=== PATIENT | male | born 1950 | race Asian ===

== ENCOUNTER 2024-10-14 01:23 | Observation (INO) | payer MEDICARE, OTHER ==
[~2024-10-14] VITALS: Ht 167.6 cm; Wt 51.8 kg
[~2024-10-14 01:23] MED LIST: ASPIRIN EC81 MG PO; BETHANECHOL CHL50 MG PO; CARTIA XT120 MG PO; COUMADIN10 MG PO; COUMADIN2.5 MG PO; COUMADIN5 MG PO; DIGOXIN125 MCG PO; ESGIC 50-325-41 EACH PO; FLEET ENEMA133 ML PR; KEPPRA500 MG PO; LIPITOR20 MG PO; LIPITOR40 MG PO; METOPROLOL TART25 MG PO; METOPROLOL TART50 MG PO; MILK OF MA400 MG/5 M PO; NORCO 5-325 TA1 EACH PO; PERCOCET 5-3251 EACH PO; POLYETHYLENE GL17 GM PO; SEROQUEL25 MG PO; WARFARIN SODIUM5 MG PO; ZENPEP DR 10,01 EACH PO
[2024-10-14 01:49] LABS: BASOPHILS 0.1 % (0-2); HEMATOCRIT 33.4 % (35.0-50.0); HEMOGLOBIN 10.9 g/dL (12.0-18.0); LYMPHOCYTES 6.2 % (24-44); MCH 32.5 (27-36); MCHC 32.7 g/dl (30-36); MCV 99.5 fl (81-99); MONOCYTES 3.4 % (0-12); NEUTROPHILS 90.3 % (39-80); PLATELET COUNT 239 K/uL (140-440); RBC 3.36 M/ul (4.3-5.7); RDW 15.2 (10.5-15.0)
[2024-10-14 01:55] LABS: INR 2.85 (0.80-1.30); PARTIAL THROMBOPLASTIN TIME 49.8 Sec (22.9-41.3); PROTIME 28.9 Sec (11.2-14.2)
[2024-10-14 02:00] LABS: ALBUMIN 3.2 g/dL (3.4-5.0); ALBUMIN/GLOBULIN RATIO 0.71 (1.1-2.4); ALCOHOL, MEDICAL <3 ng/dL (<3); ALKALINE PHOSPHATASE 74 U/L (46-116); ALT (SGPT) 12 U/L (14-59); ANION GAP 18.4 (7-21); AST (SGOT) 27 U/L (15-37); BILIRUBIN, TOTAL 2.4 ng/dL (0.2-1.0); BUN/CREATININE RATIO 18.57 (6.0-28.6); CALCIUM 8.7 mg/dL (8.5-10.1); CARBON DIOXIDE 21 mmol/L (21-32); CHLORIDE 106 mmol/L (98-107); GLOMERULAR FILTRATION RATE,EST 52 mL/min (>60); POTASSIUM 4.4 mmol/L (3.5-5.1); PROTEIN, TOTAL 7.7 g/dL (6.4-8.2); UREA NITROGEN 26 mg/dL (7-18)
[2024-10-14] MEDS ORDERED: PHYTONADIONE 10 MG in SODIUM CHLORIDE 0.9% 50 ML IV ONE (02:15)
[2024-10-14] MEDS ORDERED: diphenhydrAMINE HCL 50 MG/ML VIAL IV PRN (02:15)
[2024-10-14] MEDS ORDERED: HUMAN PROTHROMBIN COMPLX(PCC) 500 UNIT/20 ML VIAL IV ONE (02:15)
[2024-10-14] MEDS ORDERED: SODIUM CHLORIDE 0.9% 50 ML IV PRN (02:15)
[2024-10-14] MEDS ORDERED: TRANEXAMIC ACID IN NACL,ISO-OS 1,000 MG/100 ML PIGGYBACK IV SCH (03:00)
[2024-10-14] MEDS ORDERED: MORPHINE SULFATE 4 MG/ML VIAL IV PRN (08:15)
[2024-10-14] MEDS ORDERED: KETOROLAC TROMETHAMINE 15 MG/ML VIAL IV PRN (08:15)
[2024-10-14] MEDS ORDERED: ATROPINE SULFATE 1% OPTH DROPS SL PRN (08:15)
[2024-10-14] MEDS ORDERED: ACETAMINOPHEN 650 MG SUPP PR PRN (08:15)
[2024-10-14] MEDS ORDERED: LORazepam 2 MG/ML VIAL IV PRN (08:15)
[2024-10-14] MEDS ORDERED: ARTIFICIAL TEARS 15 ML BTL OU PRN (08:15)
[2024-10-14] MEDS ORDERED: ONDANSETRON 4 MG TAB ODT SL PRN (08:15)
[2024-10-14] MEDS ORDERED: PROCHLORPERAZINE 25 MG SUPP PR PRN (08:15)
[2024-10-14] MEDS ORDERED: SCOPOLAMINE 1 MG/3 DAYS PATCH 1 EACH TDSY TD SCH (09:00)
--- NOTE | 2024-10-14 09:13 | EKG ---
[facility] [address] [place] [address] Signed Atrial fibrillation with rapid ventricular response Minimal voltage criteria for LVH, may be normal variant ( Sokolow-Stokes ) Marked ST abnormality, possible inferior subendocardial injury Abnormal ECG No previous ECGs available Confirmed by Shobha Rincon MD () on 10/14/2024 9:12:56 AM Electronically Signed By: SHOBHA RINCON MD 10/14/24912 PATIENT NAME: TARA MCARTHUR Electrocardiogram DATE OF : 46 PHYSICIAN: SHOBHA RINCON MD REPORT #: [id number] REPORT IS CONFIDENTIAL AND NOT TO BE RELEASED WITHOUT AUTHORIZATION
--- NOTE | 2024-10-14 09:25 | NUR ---
PT ARRIVED TO THE MED SURG FLOOR ROOM 120 VIA STRETCHER. THIS RN, ELMER, RN BRAD FELIPE AND KARI DELEON IN ROOM TO MOVE PT TO BED VIA SLIDER SHEET. PT IS RESTING COMFORTABLY IN BED. PT HAS APENIC EPISODES OF 30 SECS, BUT FOLLOWS UP WITH A RAPID EPISODE OF BREATHING, 22 BREATHES IN A 30 SEC INTERVAL. SKIN INTACT, REDNESS NOTED TO BOTTOM. LEGS ELEVATED. MALE PURWICK APPLIED PRIOR TO ADMISSION, CONNECTED TO WALL SUCTION. SON AT BEDSIDE. CALL LIGHT IN REACH.
[2024-10-14 09:35] VITALS: BP 154/101
[2024-10-14 09:50] VITALS: BP 154/101
--- NOTE | 2024-10-14 10:00 | NUR ---
Spoke with pts son, Larry. Pt is obtunded. Discussed options and per Larry they are unable to take pt home. He states his mother would not be able to provide the care. We discussed [facility], [facility], and SNFS. He denies having funds to pay for placement. He would prefer a SNF. I discussed this would be a short stay of 7-9 days only. He does not feel he dad will survice that long. He would prefer in town. I will contact [facility] to check if they have a bed open. We also discussed pt would need an insurance to cover hospice and one to cover the room. Larry stated understanding. Let him know I call him back.
--- NOTE | 2024-10-14 11:10 | NUR ---
THIS RN IN ROOM TO CHECK ON PATIENT. SON AT BEDSIDE. PT APPEARS TO BE RESTING COMFORTABLY. SON HAS NO CONCERNS. EXPLAINED TO THE SON THAT PT APPEARS TO LOOK COMFORTABLE, BUT IF HE APPEARS TO BE IN DISTRESS WE HAVE MEDICATIONS TO HELP WITH THE DISCOMFORT. CALL LIGHT REMAINS IN REACH.
--- NOTE | 2024-10-14 11:10 | NUR ---
medications reconciled by pharmacy
--- NOTE | 2024-10-14 11:45 | NUR ---
Called and spoke with Sweta at [facility]. They do have beds for hospice pts. I faxed the chart and they will check insurance and let me know if they can accept this pt.
[2024-10-14] MEDS ORDERED: PHARMACY RENAL DOSE ADJUSTMENT 1 DOSE MISC PO SCH (12:00)
--- NOTE | 2024-10-14 13:00 | NUR ---
THIS RN IN ROOM TO CHECK ON PATIENT. PT REMAINS COMFORTABLE. SON AT BEDSIDE. CALL LIGHT IN REACH
--- NOTE | 2024-10-14 14:25 | NUR ---
Called and spoke with Sweta at [facility]. She is waiting for her financial person to check insurance.
--- NOTE | 2024-10-14 15:00 | NUR ---
THE CHARGE NURSE AND I PUT A PILLOW ON HIS LEFT SIDE.
--- NOTE | 2024-10-14 15:10 | NUR ---
Received a text from Sweta, they do not think pts secondary will cover Hospice. I spoke with Geovanny in our UR department and she will check with pts insurance.
--- NOTE | 2024-10-14 15:20 | NUR ---
TURNED PT TO RIGHT SIDE SLIGHTLY AND PLACED PILLOW UNDER LEFT HIP. PT RR SLOW AND IRREGULAR. SMALL AMT DARK MELBA URINE IN MALE PUREWICK.
--- NOTE | 2024-10-14 16:15 | NUR ---
PT RESTING COMFORTABLY IN BED. NO CHANGES AT THIS TIME.
--- NOTE | 2024-10-14 17:37 | NUR ---
THIS RN AND KARI DELEON REPOSITIONED PT TO LEFT SIDE WITH PILLOW. PT REMAINS RESTING COMFORTABLY.
--- NOTE | 2024-10-14 19:10 | NUR ---
RECIEVED REPORT FROM DAYSHIFT RN. PATIENT RESTING IN BED ON BACK WITH EYES CLOSED. RESPIRATIONS SHALLOW AND EVEN. PATIENT DOESN'T APPEAR TO BE IN ACUTE DISTRESS. NO RESPONSE TO VOICE OR LIGHTS BEING TURNED ON. NO NEEDS IDENTIFIED AT THIS TIME. CALL LIGHT IN REACH.
--- NOTE | 2024-10-14 21:40 | NUR ---
IN ROOM TO ASSESS PATIENT. PATIENT RESTING ON BACK WITH EYES CLOSED, STILL IN THE BED. PATIENT RESPIRATIONS SHALLOW. PATIENT REPOSITIONED. ORAL CARE PROVIDED. FACE CLEANED. GOWN CHANGED. PUREWICK INTACT. CALL LIGHT IN REACH. PATIENT FAMILY AT BEDSIDE, DENIES NEEDS.
--- NOTE | 2024-10-15 00:10 | NUR ---
IN ROOM TO REPOSITION PATIENT. PATIENT REPOSITONED. ORAL CARE PROVIDED. PATIENT RESTING IN BED ON BACK WITH EYES CLOSED. BREATHING ALTERNATING BETWEEN PERIODS OF APNEA AND TACHYPNEA. PATIENT NOT IN ACCUTE DISTRESS. NO NEEDS IDENTIFIED AT THIS TIME. CALL LIGHT IN REACH.
--- NOTE | 2024-10-15 02:18 | NUR ---
IN ROOM TO REPOSITION PATIENT. PATIENT REPOSITIONED. ORAL CARE PROVIDED. RESPIRATIONS ALTERNATE BETWEEN PERIODS OF APNEA AND TACHYPNEA, RR 24 BREATHS PER MINUTE. PATIENT RESTING IN BED ON BACK WITH EYES CLOSED, NO ACUTE DISTRESS. CALL LIGHT IN REACH. FAMILY AT THE BESIDE, DENIES NEEDS.
--- NOTE | 2024-10-15 04:09 | NUR ---
IN ROOM TO TURN PATIENT. PATIENT REPOSTIONED. ORAL CARE PROVIDED. PATIENT'S RESPIRATIONS ALTERNATE BETWEEN APENIC PERIODS 15-30 SECONDS AND TACHYPNEIC PERIODS, RR 24 BREATHS PER MINUTE. PATIENT DOES NOT APPEAR TO BE IN ACUTE DISTRESS. PUREWICK INTACT. NO ADDITIONAL NEEDS IDENTIFIED AT THIS TIME. CALL LIGHT IN REACH. FAMILY AT THE BEDSIDE, REQUESTS PILLOW. PILLOW PROVIDED. DENIES ADDITONAL NEEDS.
--- NOTE | 2024-10-15 06:05 | NUR ---
IN ROOM TO REPOSITION PATIENT. PATIENT REPOSITIONED. PATIENT RESTING ON BACK WITH EYES CLOSED, DOES NOT RESPOND TO VOICE. BREATHING ALTERNATES BETWEEN PERIODS OF APNEA 15-30 SECONDS, AND TACHYPNEA, 28 BREATHS PER MINUTE. NO ACUTE DISTRESS NOTED. ORAL CARE PROVIDED. WATER ON CARE CART REPLENISHED. CALL LIGHT IN REACH. FAMILY AT BEDSIDE, DENIES NEEDS.
--- NOTE | 2024-10-15 07:22 | NUR ---
MORNING REPORT RECEIEVED FROM BRAD TERRY. PT LAYING IN BED ASLEEP WITH EYES CLOSED AND CHEST RISE EQUAL BILAT. PT SON IS IN ROOM AND EXPRESSES NO NEEDS AT THIS TIME.
--- NOTE | 2024-10-15 08:43 | NUR ---
PT LAYING IN BED WITH HIS SON BEDSIDE. PT/FAMIILY HAVE NO CONCERNS AT THIS TIME. CALL LIGHT WITHIN REACH.
--- NOTE | 2024-10-15 10:07 | NUR ---
PT LAYING IN BED EYES CLOSED CHEST RISE EQUAL BILAT. CALL LIGHT WITH IN REACH. JOJO STEPPED OUT OF ROOM FOR A BIT BUT HAD NO REQUESTS AT THIS TIME.
[2024-10-15 10:21] VITALS: BP 154/101
--- NOTE | 2024-10-15 10:30 | NUR ---
PT LAYING IN BED WITH FAMILY MEMBER PRESENT. PT EYES CLOSED WITH CHEST RISE EQUAL BILAT. PT IS CONTINUING 15 SEC APNEA EPISODES BUT RESUMES REGULAR BREATHING SHORTLY AFTER. PT CALL LIGHT WITHIN REACH.
--- NOTE | 2024-10-15 11:40 | NUR ---
VISTED DURING SPIRITUAL CARE ROUNDS. PROVIDED PRAYER.
--- NOTE | 2024-10-15 12:11 | NUR ---
PT LAYING IN BED CHEST RISE EQUAL BIALT. THIS RN AND BRAD GALVIN AND MD RINCON IN ROOM TO ASSESS PT. NOTED PT SHOWED SIGNS OF ROTOR REFLEX. PT DOES NOT EXPRESS ANY SIGNS OF DISCOMFORT AT THIS TIME. CALL LIGHT WITHIN REACH.
--- NOTE | 2024-10-15 13:33 | NUR ---
PT LAYING IN BED ASLEEP WITH CHEST RISE EQUAL BILAT. PT HAS NO FAMILY IN THE ROOM AT THIS TIME. KARI KEMP REPORTED THAT PT WAS JUST TURNED. PT HAS NO CONCERNS AT THIS TIME CALL LIGHT WITHIN REACH.
--- NOTE | 2024-10-15 14:35 | NUR ---
PT LAYING IN BED WITH EYES CLOSED CHEST RISE EQUAL BILAT. PT WORK OF BREATHING HAS INCREASED SINCE THIS MORNING AND APNEA EPISODES HAVE INCREASED IN DURATION TO 25 SECONDS. PT RETURNS TO REGULAR BREATHING PATTERN POST EPISODE. PT DOES NOT EXPRESS ANY PAIN AT THE MOMENT. PT CALL LIGHT WITHIN REACH.
--- NOTE | 2024-10-15 15:00 | NUR ---
Attempted to call Sweta and text throughout the day at [facility]. I attempted to call [facility] and was notified Sweta is in. We discussed if they could take this pt as comfort care and they accepted. They would like him there before noon tomorrow. I will contact the family.
--- NOTE | 2024-10-15 15:30 | NUR ---
Spoke with pts son Larry. UPdated [facility] will accept his dad tomorrow. I can schedule EMS or [facility]. Updated [facility] will be approximate $1000 dollars. He prefers [facility].
--- NOTE | 2024-10-15 15:50 | NUR ---
PT IS RESTING IN BED, EFFORT OF BREATHING HAS NOT CHANGED. REMAINS HAVING APENIC EPISODES 25 SECONDS LONG. CALL LIGHT IN REACH.
--- NOTE | 2024-10-15 16:00 | NUR ---
Spoke with [facility] they have an opening at 9:30. Cost will be $233.60. I updated son he can pay with check, leyva, or card. They will call him. Charge nurse, Sweta VALENCIA, and Dr. Hendrix notified.
--- NOTE | 2024-10-15 16:35 | NUR ---
PT LAYING IN BED WITH EYES CLOSED CHEST RISE EQUAL BILAT. PT MALE PUREWICK IN PLACE WITH DARK URINE OUTPUT. PT STILL DISPLAYING ROTOR REFLEX WITH MOUTH. PT APPEARS IN NO DISTRESS AT THIS TIME. CALL LIGHT WITHIN REACH.
--- NOTE | 2024-10-15 17:39 | NUR ---
PT IS LAYING IN BED WITH EYES CLOSED AND CHEST RISE EQUAL BILAT. PT FACIAL EXPRESSIONS DO NOT INDICATE ANY PAIN IS PRESENT PT APPEARS TO BE RESTING COMFORTABLY. CALL LIGHT WITHIN REACH.
--- NOTE | 2024-10-15 18:47 | NUR ---
PT GEORGIE CHANGED, ROTATED, AND GOWN CHAGED WITH HELP FROM HEAD OF ETHICS AND COMPLIANCE. PT TOLERATED WELL. PT CALL LIGHT WITHIN REACH. PT/FAMILY HAVE NO OTHER CONCERNS AT THIS TIME.
--- NOTE | 2024-10-15 18:56 | NUR ---
PT RESTING IN BED, PT EXHIBITING SIGNS OF PAIN BY FACIAL GRIMACING AND INCREASED RESPIRATIONS. WORK OF BREATHING INCREASING WHILE STARING OFF TO THE RIGHT, THEN SUDDENLY SUBSIDES AND RETURNS TO BASELINE. MORPHINE PRN ADMINISTERED (PER EMAR).
--- NOTE | 2024-10-15 19:30 | NUR ---
REPORT RECEIVED FROM DAY SHIFT RN. PT LYING IN BED WITH EYES OPEN LOOKING TO THE RIGHT. ORAL THRUSTING TYPE MOVEMENT NOTED. BODY IN RELAXED POSITION. RESPIRATIONS SHALLOW AND IRREGULAR. WHITE BOARD UPDATED. CALL LIGHT IN REACH.
--- NOTE | 2024-10-15 19:52 | NUR ---
PT LYING IN BED WITH EYES SLIGHTLY OPEN. TWICHTING IN LEFT ARM AND FACE NOTED ALSO WITH PERIODS OF APNEA AND RAPID RESPIRATIONS. PRN ADMIN PER EMAR FOR COMFORT. ORAL CARE DONE AND FACE WASHED.
--- NOTE | 2024-10-15 21:50 | NUR ---
PT RESTING IN RELAXED POSITION. 2PA TO TURN WITH PILLOWS. ORAL CARE COMPLETE.
--- NOTE | 2024-10-15 22:26 | NUR ---
PT IN BED RESTING IN A RELAXED POSTION. EYES CLOSED. RESPIRATIONS 18, EVEN AND UNLABOTED AT THIS TIME.
--- NOTE | 2024-10-16 | NUR ---
PT RESTING WITH EYES CLOSED. RESPIRATIONS SHALLOW WITH BRIEF PERIODS OF APNEA. 2PA TO REPOSITION WITH PILLOWS IN BED. ORAL CARE COMPLETE.
--- NOTE | 2024-10-16 01:59 | NUR ---
PT REPOSITIONED IN BED WITH PILLOWS. PT EYES OPEN AND APPEARS TO BE MOUTHING WORDS DURING CARES. PT UNABLE TO REPOSOND TO QUESTIONS. ORAL CARE COMPLETE. PT LEFT IN RELAXED POSITION.
--- NOTE | 2024-10-16 04:20 | NUR ---
PT IN BED WITH EYES CLOSED. REPOSITIONED WITH PILLOWS. PT NOTED TO HAVE JERKING HEAD MOVEMENTS WITH IRREGULAR RESPIRATIONS. PERIODS OF APNEA ALSO NOTED. PRN FOR COMFORT ADMIN PER EMAR. FACE WASHED AND ORAL CARE COMPLETE.
--- NOTE | 2024-10-16 06:44 | NUR ---
PT REPOSITIONED IN BED WITH PILLOWS. ORAL CARE COMPLETE. PUREWICK PATENT WITH MELBA COLORED URINE. PT CONTINUES WITH PERIODS OF APNEA FOLLOWED BY TACHYPNEA. INTERMITTENT EYE AND FACIAL SPASM/TWITCHING MOVEMENT NOTED WITH CARES. PT LEFT IN RELAXED POSITION. SIDE RAILS UP FOR SAFETY.
--- NOTE | 2024-10-16 07:26 | NUR ---
REPORT RECEIVED FROM NIGHT RN. PATIENT RESTING IN BED, RESPIRATIONS EVEN AND UNLABORED. CALL LIGHT WITHIN REACH.
--- NOTE | 2024-10-16 07:50 | NUR ---
Received a text from Sweta at [facility] last night. She states pt will need an 3 night IP stay to admit even though he is admitting a LTC. I let her know he is an OBS pt. I called and we discussed. Pt cannot admit without a 3 night IP stay. I called and cancelled transport.Then called and updated the son and updated the charge nurse and Dr. Hendrix.
--- NOTE | 2024-10-16 09:13 | NUR ---
PATIENT REPOSITIONED IN BED. SKIN REMAINS INTACT, CAP REFIL TO BILATERAL FEET < 3 SECONDS. PATIENT APPREAS TO BE COMFORTABLE, NO NOTED FACIAL GRIMICING. TOLLERATED REPOSITIONING WELL. RESPIRATIONS EVEN AND UNLABORED AT THIS TIME. BED ALARM ON, CALL LIGHT WITHIN REACH.
[2024-10-16] MEDS ORDERED: FENTANYL 12 MCG/HR 1 EA TDSY TD SCH (09:15)
--- NOTE | 2024-10-16 09:45 | NUR ---
I left messages with Ghada Fischer and [facility] asking for placement for this pt. I called and discussed options with the son. We again discussed they may have bill at the hospital if medicare does not cover his comfort care admit. He is also an OBS pt which is charged at a higher rate to the family. We discussed placement to an [facility] for short term. He states he will go and discuss with his mom. I let him know [facility] in [place] and [place] will take short term placement pts and will charge a daily instead of a monthly rate. I will check for placement and when hospice could admit. I will call him with an update.
--- NOTE | 2024-10-16 10:00 | NUR ---
Spoke with Yue from [facility]. They do not have beds available in [place], but do have a male bed in [place]. They would keep it a private room. Yue will check and call me back if the is possible to admit. They would like hospice. I called Hospice and they could admit pt tomorrow at 11:00. Faxed chart to Yue to review. [id number] called and Larry states they will pay for placement to [facility]. I called and Yue confirms they can accept tomorrow. I will schedule transport through [facility]. Updated Hospice and faxed consult. Yue will fax orders for [facility]. [id number] and rescheduled transport for tomorrow at 1000. The rate will be $355.60 to [place]. 1145 Spoke with Larry. Updated to cost of transport. Wrote the name and adress for [facility] and the name and number for [facility] transport. Let him know per [facility] if he pays the same day they will give a 5% discount. Larry will be here tomorrow for transport at 10:00. He states he brought his mom to see Man. They have been 49 years. He denies other needs.
--- NOTE | 2024-10-16 10:22 | NUR ---
ELBERT FROM [facility] CALLED. STATES SHE SPOKE WITH SON, KAMAR, REGARDING RATES AND HE IS GOING TO SPEAK WITH PATIENT'S SPOUSE AND DISCUSS POTENTIAL ABILITY TO PLACE PATIENT IN [facility]. ELBERT STATES SHE WILL CALL BACK WHEN SHE GETS AN ANSWER FROM KAMAR.
--- NOTE | 2024-10-16 11:41 | NUR ---
PATIENT RESTING IN BED WITH EYES CLOSED. RESPIRATIONS EVEN AND UNLABORED. APPEARS TO BE COMFORTABLE. BED ALARM ON. CALL LIGHT WITHIN REACH.
--- NOTE | 2024-10-16 12:47 | NUR ---
PATIENT FAMILY AT [facility]. PATIENT APPEARS TO BE COMFORTABLE.
--- NOTE | 2024-10-16 13:25 | NUR ---
PATIENT REPOSITIONED IN BED. ORAL CARE COMPLETED. APPEARS TO BE COMFORTABLE AT THIS TIME. PUREWICK REMAINS INTACT. NEW URINARY OUTPUT RECORDED. BED ALARM IN PLACE. CALL LIGHT WITHIN REACH.
--- NOTE | 2024-10-16 15:48 | NUR ---
PATIENT NOTED TO HAVE TREMOR LIKE MOVEMENTS IN HIS JAW AND FACE. EYES OPEN AT THIS TIME. PATIENT UNRESPONSIVE TO TOUCH AND SOUND. RESPIRATIONS INCREASED AND SHALLOW. PRN ADMINSTERED SEE MAR. NOTED PERIODS OF APNEA DURING THIS INTERACTION WELL.
--- NOTE | 2024-10-16 17:46 | NUR ---
PATIENT REPOSITIONED IN BED. EYES OPEN RESPIRATIONS LABORED AT THIS TIME. NOTED FACIAL MOVEMENTS AND RAPID EYE MOVEMENTS. PRN GIVEN SEE MAR. BREIF REMAINS DRY. MALE PUREWICK REMAINS IN PLACE AND FUNCTIONING WNL. URINE RECORDED. PATIENT WITH NO FURTHER NEEDS. CALL LIGHT WITHIN REACH. BED ALARM ON.
--- NOTE | 2024-10-16 18:33 | NUR ---
HEARD PATIENT MOANING FROM NURSES STATION. PRN ADMINSTERED FOR PAIN SEE JAN.
--- NOTE | 2024-10-16 19:19 | NUR ---
RECEIVED REPORT FROM BRAD LY. PT RESTING QUIETLY. WHITE BOARD UPDATED.
[2024-10-16 20:24] VITALS: BP 141/82
--- NOTE | 2024-10-16 20:30 | NUR ---
PT RESTING QUIETLY, NOTED OCCASIONAL MOAN. PT PRE-MEDICATED W/ 2MG IV MORPHINE FOR HS CARES. VS OBTAINED. PT NON-RESPONSIVE, DOES NOT FOLLOW ANY COMMANDS. CONTINUES W/ FACIAL TWITCHING AND RAPID EYELID MOVEMENT OCCASIONALLY-MD AT BEDSIDE TO WITNESS. PRN IV ATIVAN GIVEN. FACE WASHED, ORAL CARE DONE, IVETH CARE DONE AND NEW EXTERNAL CATH PLACED. LOTION APPLIED TO VERY DRY, FLAKY BLE. PT REPOSITIONED TO SUPINE, HOB ELEVATED 30 DEGREES. LS DIM, COARSE UPPER AIRWAY SOUNDS, PT DOES DO WEAK COUGH. ATTEMPTED TO ORAL SXN BUT UNABLE TO CLEAR ANY SECRETIONS. RESP UNEVEN, PERIODS OF APNEA NOTED. QUIET ENVIRONEMENT IN PLACE, SOFT MUSIC IN BACKGROUND.
--- NOTE | 2024-10-16 22:14 | NUR ---
PT RESTING QUIETLY. RESP TACHY. HOB ELEVATED.
--- NOTE | 2024-10-16 23:02 | NUR ---
PT RESTING, APPEARS COMFORTABLE. RESP W/ ALTERNATING PERIODS OF APNEA AND TACHYPNEA. REPOSTION TO RIGHT SIDE W/ MAX ASSIST.
--- NOTE | 2024-10-17 00:11 | NUR ---
OCCASSIONAL MOAN NOTED, PT MEDICATED W/ PRN MORPHINE. COMFORT MEASURES CONTINUES.
--- NOTE | 2024-10-17 01:34 | NUR ---
PT RESTING QUIETLY. APPEARS COMFORTABLE.
--- NOTE | 2024-10-17 03:09 | NUR ---
PRE-MEDICATED PT W/ IV MORPHINE FOR REPOSITIONING. PT TOLERATED TURN WELL, ON LEFT SIDE NOW. APPEARS COMFORTABLE. VISITORS AT BEDSIDE.
--- NOTE | 2024-10-17 04:30 | NUR ---
PT RESTING QUIETLY. APPEARS COMFORTABLE. RESPIRATIONS W/ PERIODS OF APNEA AND TACHYPNEA, SHALLOW.
--- NOTE | 2024-10-17 06:27 | NUR ---
PT RESTING QUIETLY, APPEARS COMFORTABLE. ORAL CARE DONE BY NURSE. PT REPOSITION TO RIGHT SIDE W/ MAX ASSIST. FOAM DRSG APPLIED TO COCCYX. MINIMAL UO IN EXTERNAL MATH CATH-50cc DARK MELBA URINE. COMFORT MEASURES CONTINUE.
--- NOTE | 2024-10-17 07:15 | NUR ---
REPORT RECEIVED FROM FREDDY STEVENS RN. PATIENT RESTING IN BED. RESPIRATIONS SHALLOW AND UNEVEN. NOTED STEPHANIE TAMEZ RESPIRATIONS. NO NEEDS AT THIS TIME. CALL LIGHT WITHIN REACH. BED ALARM ON.
--- NOTE | 2024-10-17 07:34 | NUR ---
IN ROOM WITH STUDENT NURSE TO REPOSITION PATIENT. NOTED THAT PATIENT WAS APNEIC. RN LISTENED FOR HEART TONES. NO HEART TONES NOTED. RN NOTIFIED CHARGE NURSE. MD ON UNIT AND NOTIFIED. MD IN TO ASSESS PATIENT. MD CONFIRMED PATIENT TO NOT HAVE ANY HEART TONES. MD NOTIFIED FAMILY AND [facility].
--- NOTE | 2024-10-17 07:40 | NUR ---
Notified by Dr. Hendrix pt . Notified [facility] transport, Amelia at [facility], and Yue at [facility]. will call the son.
--- NOTE | 2024-10-17 07:58 | NUR ---
NOTIFIED BY FINAL CIGAR AND BOX EXAMINER THAT PT HAD PASSED. FAMILY NOT PRESENT. PERIPHERAL EQUIPMENT OPERATOR PROVIDED PRAYER.
--- NOTE | 2024-10-17 08:12 | NUR ---
VISITED WITH SON VIA PHONE. INDICATED [facility] CHO[facility]. GAVE PERMISSION TO RELEASE BODY TO HOME WHEN RELEASED BY DONOR LINE. MANUFACTURING SYSTEMS ENGINEER EXPRESSED CONDOLENCES, PROVIDED ANTICIPATORY GUIDANCE.
--- NOTE | 2024-10-17 10:14 | NUR ---
[facility] IN WITH PATIENT AND HOME STAFF AT THIS TIME. PATIENT DISCHARGED FROM [facility] WITH HOME STAFF.
--- NOTE | 2024-10-17 10:17 | NUR ---
CALLED [facility] [phone]. NO ANSWER, REQUESTED CALL BACK. MAICO CALLED [phone]. SMITA ARRIVED TO [facility] 1001. NO PERSONAL BELONGINGS FOUND. PT DEPARTED IN CARE OF [facility] 1014.
== END 2024-10-17 10:14 ==
LOC: ED 01:23 → MS 01:24
PROVIDERS: Emergency Medicine; ADMIT Family Medicine; ATTEND Family Medicine
DX: I62.00 Nontraumatic subdural hemorrhage, unspecified (principal); I48.91 Unspecified atrial fibrillation; I21.4 Non-ST elevation (NSTEMI) myocardial infarction; Z79.01 Long term (current) use of anticoagulants; Z79.899 Other long term (current) drug therapy; Z51.5 Encounter for palliative care
CPT/HCPCS: 36415; 70450; 80053; 80307; 82140; 84484; 85025; 85610; 85730; 93005; 93010; 96365; 96367; 96375; 96376; 99285-25; G0378; G0480; J2060; J2270; J3430; J7168